=== PATIENT | female | born 1980 | race Caucasian/White ===

== ENCOUNTER → 2019-10-10 | Outpatient (CLI) | payer MEDICARE, OTHER | END | disposition home or self-care (01) | LOC: LABWHC1 12:43 | PROVIDERS: ATTEND Internal Medicine | DX: Z11.59 Encounter for screening for other viral diseases (principal) ==

== ENCOUNTER 2019-10-12 10:27 | Day surgery (SDC) | payer MEDICARE, OTHER ==
[2019-10-10 14:58] VITALS: BMI 38.9
[~2019-10-12 10:27] MED LIST: LACTATED RINGERS 1,000 ML IV SCH
[2019-10-12 11:16] VITALS: TEMP 96.6
[2019-10-12] MEDS ORDERED: PROPOFOL 10 MG/ML 20 ML VIAL IV ONE (11:47)
--- NOTE | 2019-10-12 12:03 | P.PCN ---
Date of Procedure: 10/12/19 Procedure(s) Performed: BRIEF HISTORY: Patient is a 38-year-old pleasant white female scheduled for an elective colonoscopy as a part of evaluation of intermittent rectal bleeding and change in bowel habits for the last few months duration PROCEDURE PERFORMED: Colonoscopy.With snare polypectomy PREOPERATIVE DIAGNOSIS: Change in bowel habits and intermittent rectal bleeding. IV sedation per Anesthesia. PROCEDURE: After informed consent was obtained, the patient, was brought into the endoscopy unit. IV sedation was administered by Anesthesia under continuous monitoring. Digital rectal examination was normal. Initially the Olympus CF-160 flexible video colonoscope was then inserted in the rectum, gradually advanced into the cecum without any difficulty. Careful examination was performed as the scope was gradually being withdrawn. Ileocecal valve and the appendiceal orifice were visualized and appeared normal. Prep was excellent. Mucosa of the cecum, ascending colon, transverse colon, descending colon, sigmoid colon, and rectum appeared normal. In the proximal rectum there is polyps measuring 5 mm and 7 mm in size both of which were removed by snare polypectomy. Retroflexion was performed in the rectum and small internal hemorrhoids were seen. The patient tolerated the procedure well. IMPRESSION: 5 mm and 7 mm proximal rectal polyps status post polypectomy Small internal hemorrhoids RECOMMENDATIONS: Findings of this examination were discussed with the patient. She was advised to follow with the biopsy results. If the biopsy shows an adenoma she can have a repeat colonoscopy in 5 years.She was advised to be a high-fiber diet and take a regular fiber supplements on a regular basis .
[2019-10-12 12:20] VITALS: BP 126/77; PULSE 77; RESP 18
== END 2019-10-12 12:44 | disposition home or self-care (01) ==
LOC: ORWHC2ENDO 10:27
PROVIDERS: ATTEND Internal Medicine Gastroenterology
DX: D12.8 Benign neoplasm of rectum (principal); K64.8 Other hemorrhoids; F17.210 Nicotine dependence, cigarettes, uncomplicated; F41.9 Anxiety disorder, unspecified; F32.9 Major depressive disorder, single episode, unspecified; M79.7 Fibromyalgia; Z88.0 Allergy status to penicillin; Z79.899 Other long term (current) drug therapy
CPT/HCPCS: 88305; 45385; J2704

== ENCOUNTER → 2021-11-04 | Outpatient (CLI) | payer MEDICARE, OTHER ==
[2021-11-04 14:50] VITALS: BP 157/102; PULSE 82; RESP 17; TEMP 98.2
--- NOTE | 2021-11-04 18:52 | P.HPOB ---
History of Present Illness H&P Date: 11/04/21 Chief Complaint: The patient is here for her routine gynecologic exam. This is a 48-year-old 023 with an LMP of 2016. The patient is here to establish with this office. It has been about 5 years since her last pelvic exam. She previously saw Dr. Nieto for her gynecologic care. She is status post ROCÍO for benign reasons in 2016. She frequently feels hot and wonders if this is related to menopausal changes. She was also recently started on Synthroid for hypothyroidism, but her hot sensations started about 2 years ago. Review of Systems The patient's weight has been stable over the last year. She states she did have a significant weight gain of about 80 pounds about 4 years ago and this seems to correspond when she stopped abusing prescription narcotic pain medications. She denies respiratory, cardiac, or G.I. problems. Past Medical History Past Medical History: Fibromyalgia, GERD/Reflux, Musculoskeletal Disorder, Thyroid Disorder Additional Past Medical History / Comment(s): ARTHRITIS. DDD, BACK PAIN; MIGRAINES. Fibromyalgia. Hypothyroidism. Fatty liver. EDEMA LEGS ON/OFF. 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 No other history of STDs. History of Any Multi-Drug Resistant Organisms: None Reported Past Surgical History: Cholecystectomy, Hysterectomy, Tubal Ligation, Uterine Ablation Additional Past Surgical History / Comment(s): D & C AFTER ECTOPIC ; Laparoscopy, right partial salpingectomy; TL X2. B/L lower back radiofrequency nerve ablation, ROCÍO with L salpingectomy 03/24/16. Colonoscopy with polyp removal 2019(next after 3yr). Past Anesthesia/Blood Transfusion Reactions: No Reported Reaction Past Psychological History: Anxiety, Depression (Well-controlled with medication.), Panic Disorder Smoking Status: Former smoker Past Alcohol Use History: Occasional (6 or 7 per month) Additional Past Alcohol Use History / Comment(s): SMOKES <1/2 PPD, X16 YEARS. Quit smoking May 2021. Past Drug Use History: Marijuana, Opiates Additional Drug Use History / Comment(s): MARIJUANA USE 20 YRS AGO, NONE NOW. History of opiate abuse up until 2018. Edible CBD products. - Past Family History Mother Family Medical History: Renal Disease Additional Family Medical History / Comment(s): Depression. Maternal grandmother had renal failure. Maternal great grandmother had breast cancer. Father Family Medical History: Unable to Obtain Medications and Allergies Home Medications Medication Instructions Recorded Confirmed Type Acetaminophen [Tylenol Extra 500 mg PO DIRECTED PRN 10/10/19 11/04/21 History Strength] FLUoxetine HCL [PROzac] 20 mg PO HS 10/10/19 11/04/21 History Multivitamins, Thera [Multivitamin 1 tab PO DAILY 10/10/19 11/04/21 History (formulary)] Cholecalciferol (Vitamin D3) 125 mcg PO DAILY 11/04/21 11/04/21 History [Vitamin D3 (125 MCG = 5,000 IU)] Allergies Allergy/AdvReac Type Severity Reaction Status Date / Time Penicillins Allergy Rash/Hives Verified 11/04/21 14:45 Exam Vital Signs Temp Pulse Resp BP Pulse Ox 11/04/21 14:47 98.2 F 82 17 157/102 97 Intake and Output 11/04/21 11/04/21 11/04/21 06:59 14:59 22:59 Other: Weight 107.955 kg Height 5 feet 4 inches, weight 238 pounds, BMI 40.9. Repeat blood pressure in the left arm was 148/92 using the large blood pressure cuff. This is a well-developed well-nourished heavyset white female who is alert and oriented times 3 in no acute distress. HEENT: Within normal limits. NECK: Supple without mass or thyromegaly. CHEST AND LUNGS: Clear to auscultation. HEART: Regular rate and rhythm. BREASTS: Are without mass or discharge. AXILLARY EXAM: Negative for adenopathy. BACK: Negative for CVA tenderness. ABDOMEN: Soft, nontender, without palpable masses. PELVIC EXAM: External genitalia appears normal. Vagina appears normal. There is no evidence of prolapse. Bimanual examination is negative for mass or tenderness. RECTAL EXAM: negative for mass or tenderness and is negative for occult blood. EXTREMITIES: Nontender. IMPRESSION: 1. 40-year-old female status post ROCÍO and bilateral salpingectomy for benign reasons, with normal gynecologic exam. 2. Vasomotor symptoms. Differential diagnosis will include perimenopausal changes as well as thyroid dysfunction and possible thyroid medication side effects. 3. Elevated blood pressure. PLAN: 1. Pap smears have been discontinued. 2. Self breast awareness was discussed with the patient. We have also discussed symptoms associated with inflammatory breast cancer. 3. Screening mammogram is due and the order slip was given to the patient for this. 4. Blood tests will include FSH and estradiol to determine if she is menopausal. The order slip was given to the patient for this. 5. We have discussed her elevated blood pressure. I have recommended that she check her own blood pressure on a regular basis and follow up with her PCP for blood pressure elevations. 6. Because of her history of fatty liver, I recommended that she avoid Tylenol intake. We have discussed other [id number] pain medications. 7. She has not had a Covid vaccination. She states she has had Covid in the past. She understands the CDC recommends Covid vaccination. She will consider this. 8. She was advised to return in one year for her annual well woman exam and as needed.
[2021-11-05 00:23] LABS: Estradiol 41.3 pg/mL; Follicle Stimulating Hormone 3.7 mIU/mL
--- NOTE | 2021-11-05 11:44 | P.PN ---
Progress Note - Text Progress Note Date: 11/05/21 OUTPATIENT FOLLOW-UP NOTE TEST(S)/RESULTS: Test results from 11/04/2021 include FSH of 3.7 and estradiol of 41.3. METHOD OF NOTIFICATION: The patient was notified by phone. PATIENT COMMENTS: DIAGNOSIS: Blood tests are consistent with perimenopausal status DISCUSSION: Her feeling warm and sweats most likely not related to the menopausal change based on these blood tests. I have recommended that she discuss this with her PCP and to make sure her thyroid hormone levels are monitored since she was recently started on Synthroid. I have also recommended that she try to look for triggers of the vasomotor symptoms that she describes. PLAN: She was advised to return in one year for her annual well woman exam and as needed.
== END | disposition home or self-care (01) ==
LOC: WWCWWP 14:25
PROVIDERS: ATTEND Obstetrics & Gynecology
DX: N92.4 Excessive bleeding in the premenopausal period (principal)
CPT/HCPCS: 36415; 82670; 83001

== ENCOUNTER → 2021-11-18 | Outpatient (CLI) | payer MEDICARE, OTHER ==
--- NOTE | 2021-11-19 07:59 | MM ---
Reason for Exam: Screening (asymptomatic). Last mammogram was performed 5 year(s) and 11 month(s) ago. Patient History: Menarche at age 11. First Full-Term at age 15. Maternal grandmother had breast cancer, age 65. Risk Values: Génesis 5 year model risk: 0.5%. NCI Lifetime model risk: 8.0%. Prior Study Comparison: 12/09/2015 Bilateral Screening Mammogram, [facility]. Tissue Density: The breast tissue is heterogeneously dense. This may lower the sensitivity of mammography. Findings: Analyzed By CAD. There is no suspicious group of microcalcifications or new suspicious mass in either breast. Overall Assessment: Negative, BI-RAD 1 Management: Screening Mammogram of both breasts in 1 year. A clinical breast exam by your physician is recommended on an annual basis and results should be correlated with mammographic findings. Electronically signed and approved by: Desmond Puga M.D. Radiologis
== END | disposition home or self-care (01) ==
LOC: RADMAMWWP 16:25
PROVIDERS: ATTEND Obstetrics & Gynecology
DX: Z12.31 Encounter for screening mammogram for malignant neoplasm of breast (principal)
CPT/HCPCS: 77063; 77067

== ENCOUNTER → 2023-01-19 | Outpatient (CLI) | payer MEDICARE, OTHER ==
[2023-01-19 11:44] VITALS: BP 109/71; PULSE 83; RESP 16; TEMP 97.9
--- NOTE | 2023-01-19 12:41 | P.HPOB ---
History of Present Illness H&P Date: 01/19/23 Chief Complaint: The patient is here for her routine gynecologic exam and ma mmogram. This is a 42-year-old 023 with an LMP of 2016. The patient is complaining of worsening hot flashes and night sweats and this is very bothersome for her. She is status post ROCÍO for benign reasons. Last year she had an estradiol level of 41 on 11/04/2021. She states she has noticed a small irregularity of the left labia minora since childbirth more than 20 years ago. She is wondering what it is. She is otherwise without gynecologic complaints. Review of Systems She has lost about 40 pounds over the past year and she has done this intentionally with diet and exercise. She denies respiratory or cardiac problems. GI: Occasional irritable bowel symptoms and she is seeing a GI specialist for this. Past Medical History Past Medical History: Fibromyalgia, GERD/Reflux, Musculoskeletal Disorder, Thyroid Disorder Additional Past Medical History / Comment(s): ARTHRITIS. DDD, BACK PAIN; MIGRAINES. Fibromyalgia. Hypothyroidism. Fatty liver. EDEMA LEGS ON/OFF. 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 No other history of STDs. History of Any Multi-Drug Resistant Organisms: None Reported Past Surgical History: Cholecystectomy, Hysterectomy, Tubal Ligation, Uterine Ablation Additional Past Surgical History / Comment(s): D & C AFTER ECTOPIC ; Laparoscopy, right partial salpingectomy; TL X2. B/L lower back radiofrequency nerve ablation, ROCÍO with L salpingectomy 03/24/16. Colonoscopy with polyp removal 2019(next after 3yr). Past Anesthesia/Blood Transfusion Reactions: No Reported Reaction Past Psychological History: Anxiety, Depression, Panic Disorder Smoking Status: Former smoker Past Alcohol Use History: Occasional (0-4 per month.) Additional Past Alcohol Use History / Comment(s): SMOKES <1/2 PPD, X16 YEARS. Quit smoking May 2021. Past Drug Use History: Marijuana, Opiates Additional Drug Use History / Comment(s): MARIJUANA USE 20 YRS AGO, NONE NOW. History of opiate abuse up until 2018. Edible CBD products. Additional History: She is currently undergoing a divorce and has been with a new boyfriend since summer. They do not live together. - Past Family History Father Family Medical History: Unable to Obtain Mother Family Medical History: Dementia, Renal Disease Additional Family Medical History / Comment(s): Depression and Alzheimer's disease.. Maternal grandmother had renal failure. Maternal great grandmother had breast cancer. Medications and Allergies Home Medications Medication Instructions Recorded Confirmed Type Acetaminophen [Tylenol Extra 500 mg PO DIRECTED PRN 10/10/19 01/19/23 History Strength] FLUoxetine HCL [PROzac] 20 mg PO HS 10/10/19 01/19/23 History Multivitamins, Thera [Multivitamin 1 tab PO DAILY 10/10/19 01/19/23 History (formulary)] Cholecalciferol (Vitamin D3) 125 mcg PO DAILY 11/04/21 01/19/23 History [Vitamin D3 (125 MCG = 5,000 IU)] L.acidoph,Paracasei, B.lactis 1 cap PO DAILY 01/19/23 01/19/23 History [Probiotic] Levothyroxine Sodium [Synthroid] 75 mcg PO DAILY 01/19/23 01/19/23 History Losartan [Cozaar] 25 mg PO DAILY 01/19/23 01/19/23 History Naproxen 250 mg PO DAILY 01/19/23 01/19/23 History Allergies Allergy/AdvReac Type Severity Reaction Status Date / Time Penicillins Allergy Rash/Hives Verified 01/19/23 11:38 Exam Vital Signs Temp Pulse Resp BP Pulse Ox 01/19/23 11:40 97.9 F 83 16 109/71 96 Intake and Output 01/18/23 01/19/23 01/19/23 22:59 06:59 14:59 Other: Weight 89.811 kg Height 5 feet 3 inches, weight 198 pounds, BMI 35.1. This is a well-developed well-nourished white female who is alert and oriented times 3 in no acute distress. HEENT: Within normal limits. NECK: Supple without mass or thyromegaly. CHEST AND LUNGS: Clear to auscultation. HEART: Regular rate and rhythm. BREASTS: Are without mass or discharge. AXILLARY EXAM: Negative for adenopathy. BACK: Negative for CVA tenderness. ABDOMEN: Soft, nontender, without palpable masses. PELVIC EXAM: External genitalia reveals a slight irregularity in the left labia minora where the anterior labia minora is slightly from the lower labia minora. This is most consistent with a previous left labial laceration at childbirth and appears completely benign. Vagina appears normal. There is no evidence of prolapse. Bimanual examination is negative for mass or tenderness. RECTAL EXAM: Rectovaginal exam is negative for mass or tenderness and is negative for occult blood. EXTREMITIES: Nontender. IMPRESSION: 1. 42-year-old female status post ROCÍO for benign reasons, with moderate to severe vasomotor symptoms consistent with the menopausal change. 2. Benign-appearing left labia minora consistent with a labial laceration from childbirth that has healed. PLAN: 1. Pap smears have been discontinued. 2. Self breast awareness was discussed with the patient. We have also discussed symptoms associated with inflammatory breast cancer. 3. Screening mammogram will be done today. 4. I have reassured the patient regarding the labial separation. Since this causes her no problems nothing further as needed. She states it has not changed for more than 20 years. 5. Trial of ERT was discussed. We have discussed possible risks including the possible increased risk for stroke and blood clots. She has no history of rest or uterine cancer. She will be started on estradiol 0.5 mg daily by mouth. The electronic prescription will be sent to [facility] pharmacy. She will return in 1-2 months for recheck. 6. She is scheduled for a colonoscopy through her GI specialist later this week. 7. We will see her for recheck in 1-2 months and in one year and as needed.
== END ==
LOC: WWCWWP 11:24
PROVIDERS: ATTEND Obstetrics & Gynecology
DX: Z01.419 Encounter for gynecological examination (general) (routine) without abnormal findings (principal); E03.9 Hypothyroidism, unspecified; K21.9 Gastro-esophageal reflux disease without esophagitis; K76.0 Fatty (change of) liver, not elsewhere classified; F17.210 Nicotine dependence, cigarettes, uncomplicated; M19.90 Unspecified osteoarthritis, unspecified site; Z78.0 Asymptomatic menopausal state; Z79.890 Hormone replacement therapy; Z79.899 Other long term (current) drug therapy; Z80.3 Family history of malignant neoplasm of breast; Z88.0 Allergy status to penicillin

== ENCOUNTER → 2023-01-19 | Outpatient (CLI) | payer MEDICARE, OTHER ==
--- NOTE | 2023-01-20 15:47 | MM ---
Reason for Exam: Screening (asymptomatic). Last mammogram was performed 1 year(s) and 2 month(s) ago. Patient History: Menarche at age 11. First Full-Term at age 15. Hysterectomy at age 35. Perimenopausal. Patient has history of breast feeding. Maternal grandmother had breast cancer, age 65. Risk Values: Génesis 5 year model risk: 0.5%. NCI Lifetime model risk: 7.9%. Prior Study Comparison: 12/09/2015 Bilateral Screening Mammogram, [facility]. 11/18/2021 Bilateral MG 3D screening mammo w/cad, [facility]. Tissue Density: The breast tissue is heterogeneously dense. This may lower the sensitivity of mammography. Findings: Analyzed By CAD. Pattern appears symmetrical and stable. No significant change is evident. There is a group of 4 calcifications within the mid right breast. Additional scattered punctate calcifications are present. No significant interval changes are evident. No suspicious groups of microcalcifications, spiculated or lobular masses, architectural distortion or other secondary signs of malignancy are mammographically apparent. Overall Assessment: Benign, BI-RAD 2 Management: Screening Mammogram of both breasts in 1 year. A negative mammogram report should not preclude additional follow up of suspicious palpable abnormalities. Patient should continue monthly self breast exam. A clinical breast exam by your physician is recommended on an annual basis and results should be correlated with mammographic findings. Electronically signed and approved by: Mitch Goddard D.O. Radiologis
== END | disposition home or self-care (01) ==
LOC: RADMAMWWP 11:22
PROVIDERS: ATTEND Family Medicine
DX: Z12.31 Encounter for screening mammogram for malignant neoplasm of breast (principal); Z80.3 Family history of malignant neoplasm of breast
CPT/HCPCS: 77063; 77067

== ENCOUNTER 2023-01-22 08:52 | Day surgery (SDC) | payer MEDICARE, OTHER ==
[2023-01-22] MEDS: LACTATED RINGERS 1,000 ML IV SCH ×2 (06:49→09:52)
[2023-01-22] MEDS ORDERED: LIDOCAINE 1% (10MG/ML) FOR IV START INTRADERMA PRN (09:35)
[2023-01-22 09:47] VITALS: RESP 16; TEMP 97.9
[2023-01-22] MEDS ORDERED: PROPOFOL 10 MG/ML 20 ML VIAL IV ONE (09:58)
--- NOTE | 2023-01-22 10:16 | P.PCN ---
Date of Procedure: 01/22/23 Procedure(s) Performed: BRIEF HISTORY: Patient is a 42-year-old pleasant white female scheduled for an elective colonoscopy as a part of evaluation of prior history of colon polyps. Her last colonoscopy was 3 years ago and was noted to have a tubular adenoma PROCEDURE PERFORMED: Colonoscopy. PREOPERATIVE DIAGNOSIS: History of colon polyps. IV sedation per Anesthesia. PROCEDURE: After informed consent was obtained, the patient, was brought into the endoscopy unit. IV sedation was administered by Anesthesia under continuous monitoring. Digital rectal examination was normal. Initially the Olympus CF-160 flexible video colonoscope was then inserted in the rectum, gradually advanced into the cecum without any difficulty. Careful examination was performed as the scope was gradually being withdrawn. Ileocecal valve and the appendiceal orifice were visualized and appeared normal. Prep was excellent. Mucosa of the cecum, ascending colon, transverse colon, descending colon, sigmoid colon, and rectum appeared normal. Retroflexion was performed in the rectum and no lesions were seen. The patient tolerated the procedure well. IMPRESSION: Normal-appearing colon from rectum to cecum with no evidence of colorectal neoplasia. RECOMMENDATIONS: Findings of this examination were discussed with the patient as well as a family. She was advised to have a repeat colonoscopy in 10 years.
[2023-01-22 15:26] VITALS: BP 102/68; PULSE 76
== END 2023-01-22 10:52 | disposition home or self-care (01) ==
LOC: ORWHC2ENDO 08:52
PROVIDERS: ATTEND Internal Medicine Gastroenterology
DX: Z12.11 Encounter for screening for malignant neoplasm of colon (principal); I10 Essential (primary) hypertension; E07.9 Disorder of thyroid, unspecified; F32.A Depression, unspecified; F41.9 Anxiety disorder, unspecified; G43.909 Migraine, unspecified, not intractable, without status migrainosus; K21.9 Gastro-esophageal reflux disease without esophagitis; Z79.890 Hormone replacement therapy; Z79.891 Long term (current) use of opiate analgesic; Z79.899 Other long term (current) drug therapy; Z88.0 Allergy status to penicillin; Z86.010 Personal history of colon polyps; Z98.890 Other specified postprocedural states
CPT/HCPCS: J2704; G0105

== ENCOUNTER → 2023-07-28 | Outpatient (CLI) | payer MEDICARE, OTHER ==
[2023-07-28 10:22] VITALS: BP 131/90; PULSE 91; RESP 17; TEMP 98
--- NOTE | 2023-07-28 10:38 | P.PN ---
Progress Note - Text Progress Note Date: 07/28/23 Chief Complaint: The patient is here for a recheck on estrogen replacement therapy for menopausal symptoms. HPI: This is a 42-year-old 0-3 with an LMP of 2016. She is status post ROCÍO for benign reasons. She was started on ERT in January 2023 because of severe hot flashes and night sweats which have been very bothersome. She was started on estradiol 0.5 mg daily. She states there has been slight improvement, but states she still has moderate hot flashes about 5 times per day and also experiences them at night as well. These are still bothersome. She denies any side effects including breast tenderness, headache, and nausea. She also denies shortness of breath, chest pain or leg pains. ROS: See HPI. PE: Blood pressure: 131/90, Height: 5 feet 4 inches, Weight: 227 pounds, Temperature: 98.0, Pulse: 91. Pulse oximeter 98%. This is a well developed, well nourished, white female who is alert and orientedx3, in no acute distress. Impression: 1. 42-year-old perimenopausal female status post ROCÍO for benign reasons, vasomotor symptoms slightly improved with estradiol 0.5 mg daily. 2. She continues to have moderate vasomotor symptoms during the day and night. Plan: 1. We will increase the estradiol to 1 mg daily. We have again reviewed possible side effects and possible risks. We have discussed the increased risk for blood clots with ERT. She understands these risks and would like to proceed with the increased dose of estradiol. The electronic prescription will be sent to [facility] in [place]. 2. She will return in January of this year for her annual examination or she was instructed to return after 2 months if vasomotor symptoms are still very bothersome. Time spent with the patient: 15 minutes
== END ==
LOC: WWCWWP 10:00
PROVIDERS: ATTEND Obstetrics & Gynecology
DX: F12.90 Cannabis use, unspecified, uncomplicated (principal); F17.200 Nicotine dependence, unspecified, uncomplicated; Z78.0 Asymptomatic menopausal state; Z90.710 Acquired absence of both cervix and uterus; Z88.0 Allergy status to penicillin

== ENCOUNTER → 2024-08-22 | Outpatient (CLI) | payer MEDICARE, OTHER ==
[2024-08-22 14:43] VITALS: BP 129/88; PULSE 89; RESP 16; TEMP 97.8
--- NOTE | 2024-08-22 15:16 | P.HPOB ---
History of Present Illness H&P Date: 08/22/24 Chief Complaint: The patient is here for her routine gynecologic exam and ma mmogram. This is a 43-year-old -0-2-3 with an LMP of 2016. The patient is status post ROCÍO for benign reasons. She is on ERT for menopausal symptoms. She states with the increase in ERT last year, she has noticed less hot flashes, but is experiencing a low sex drive. She denies dyspareunia. She is in relatively new relationship in the past 2 years. She states she is able to achieve orgasm without difficulty. She is otherwise without gynecologic complaints. Review of Systems The patient has gained 44 pounds over the last year. This was after losing 40 pounds with diet and exercise. She denies respiratory, cardiac, or G.I. problems. Past Medical History Past Medical History: Fibromyalgia, GERD/Reflux, Musculoskeletal Disorder, Thyroid Disorder Additional Past Medical History / Comment(s): ARTHRITIS. DDD, BACK PAIN; MIGRAINES(improvent with Botox inj. Fibromyalgia. Hypothyroidism. Fatty liver. EDEMA LEGS ON/OFF. 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 No other history of STDs. History of Any Multi-Drug Resistant Organisms: None Reported Past Surgical History: Cholecystectomy, Hysterectomy, Tubal Ligation, Uterine Ablation Additional Past Surgical History / Comment(s): D & C AFTER ECTOPIC ; Laparoscopy, right partial salpingectomy; TL X2. B/L lower back radiofrequency nerve ablation, ROCÍO with L salpingectomy 03/24/16. Colonoscopy with polyp removal 2019(next after 3yr). Past Anesthesia/Blood Transfusion Reactions: No Reported Reaction Past Psychological History: Anxiety, Depression, Panic Disorder Smoking Status: Former smoker Past Alcohol Use History: Occasional (5-6 drinks every 3 months.) Additional Past Alcohol Use History / Comment(s): SMOKES <1/2 PPD, X16 YEARS. Quit smoking May 2021. Past Drug Use History: Marijuana, Opiates Additional Drug Use History / Comment(s): MARIJUANA USE 20 YRS AGO, NONE NOW. History of opiate abuse up until 2018. Edible CBD products. Additional History: She is . She has been with her boyfriend since 2022. They do not live together. She does not work outside of the home. - Past Family History Father Family Medical History: Unable to Obtain Mother Additional Family Medical History / Comment(s): Depression. Maternal grandmother had renal failure. Maternal great grandmother had breast cancer. alzheimer Medications and Allergies Home Medications Medication Instructions Recorded Confirmed Type Acetaminophen [Tylenol Extra 500 mg PO DIRECTED PRN 10/10/19 08/22/24 History Strength] FLUoxetine HCL [PROzac] 20 mg PO HS 10/10/19 08/22/24 History Multivitamins, Thera [Multivitamin 1 tab PO DAILY 10/10/19 08/22/24 History (formulary)] Cholecalciferol (Vitamin D3) 125 mcg PO DAILY 11/04/21 08/22/24 History [Vitamin D3 (125 MCG = 5,000 IU)] Levothyroxine Sodium [Synthroid] 75 mcg PO DAILY 01/19/23 08/22/24 History Losartan [Cozaar] 25 mg PO DAILY 01/19/23 08/22/24 History Naproxen 250 mg PO BID 01/19/23 08/22/24 History Omeprazole 20 mg PO HS 01/21/23 08/22/24 History Unk 1 tab PO DAILY 01/21/23 08/22/24 History estradioL [Estrace] 1 mg PO DAILY #90 tab 07/28/23 08/22/24 Rx Cetirizine HCl 10 mg PO BID 08/22/24 08/22/24 History Pregabalin [Lyrica] 75 mg PO BID 08/22/24 08/22/24 History amLODIPine [Norvasc] 5 mg PO DAILY 08/22/24 08/22/24 History hydroCHLOROthiazide 25 mg PO DAILY 08/22/24 08/22/24 History Allergies Allergy/AdvReac Type Severity Reaction Status Date / Time Penicillins Allergy Rash/Hives Verified 08/22/24 14:27 Exam Vital Signs Temp Pulse Resp BP Pulse Ox 08/22/24 14:34 97.8 F 89 16 129/88 98 Intake and Output 08/22/24 08/22/24 08/22/24 06:59 14:59 22:59 Other: Weight 242 kg Height 5 feet 5 inches, weight 242 pounds, BMI 40. This is a well-developed well-nourished heavyset white female who is alert and oriented times 3 in no acute distress. HEENT: Within normal limits. NECK: Supple without mass or thyromegaly. CHEST AND LUNGS: Clear to auscultation. HEART: Regular rate and rhythm. BREASTS: Are without mass or discharge. AXILLARY EXAM: Negative for adenopathy. BACK: Negative for CVA tenderness. ABDOMEN: Soft, nontender, without palpable masses. PELVIC EXAM: External genitalia appears normal. Vagina appears normal. There is no evidence of prolapse. Bimanual examination reveals a palpable mass posterior to the vaginal cuff which measures approximately 3 to 4 cm. This is nontender and initially felt like it could represent stool. RECTAL EXAM: Rectovaginal exam is negative for rectal mass or tenderness and is negative for occult blood. The palpable mass on the above bimanual examination was not explained by rectal stool. EXTREMITIES: Nontender. IMPRESSION: 1. 43-year-old menopausal female status post ROCÍO for benign reasons, with normal gynecologic exam. 2. Improvement with vasomotor symptoms on ERT. 3. Hypoactive sexual desire disorder without anorgasmia. 4. Palpable pelvic mass on exam today. Differential diagnosis will include colonic stool, palpable ovary, and ovarian mass. PLAN: 1. Pap smears have been discontinued. 2. Self breast awareness was discussed with the patient. We have also discussed symptoms associated with inflammatory breast cancer. 3. Screening mammogram will be done today. 4. Pelvic ultrasound was recommended. I have recommended that she move her bowels and possibly use Senokot as directed, if needed. The order slip for the pelvic ultrasound was given to the patient. 5. We have had a long discussion regarding decreased sex drive. We discussed options including increasing the estrogen amount that she takes and testosterone therapy. We have also discussed how there are many factors that can contribute to decreased libido. I have stressed the importance of good nutrition, adequate rest, limited alcohol intake and regular exercise. She should also make sure her thyroid is well-regulated. After the long discussion she is declining changing her ERT at this time. Electronic prescription for estradiol 1 mg p.o. daily will be sent to [facility] pharmacy in [place]. 6. Osteoporosis prevention was discussed. I have stressed the importance of adequate calcium, vitamin D and regular exercise. Recommended amounts of calcium and vitamin D were also discussed. 7. She was advised to return in one year for her annual well woman exam and as needed.
--- NOTE | 2024-08-22 15:35 | MM ---
Reason for Exam: Screening (asymptomatic). Last mammogram was performed 1 year(s) and 7 month(s) ago. Patient History: Menarche at age 11. First Full-Term at age 15. Hysterectomy at age 35. Perimenopausal. Patient has history of breast feeding. Maternal grandmother had breast cancer, age 65. Risk Values: Génesis 5 year model risk: 0.6%. NCI Lifetime model risk: 7.8%. Prior Study Comparison: 12/09/2015 Bilateral Screening Mammogram, [facility]. 11/18/2021 Bilateral MG 3D screening mammo w/cad, [facility]. 01/19/2023 Bilateral MG 3D screening mammo w/cad, [facility]. Tissue Density: The breasts are heterogeneously dense, which may obscure small masses. Findings: Analyzed By CAD. A few tiny benign-appearing calcifications bilaterally are redemonstrated. There is no suspicious new group of microcalcifications or new suspicious mass in either breast. Overall Assessment: Benign, BI-RAD 2 Management: Screening Mammogram of both breasts in 1 year. . Patient should continue monthly self-breast exams. A clinical breast exam by your physician is recommended on an annual basis. This exam should not preclude additional follow-up of suspicious palpable abnormalities. Note on Génesis scores and lifetime risk: 1. A Génesis score greater than 3% is considered moderate risk. If this is the case, consider specialist referral to assess eligibility for a risk reducing agent. 2. If overall lifetime risk for the development of breast cancer is 20% or higher, the patient may qualify for future screening with alternating mammogram and breast MRI. [facility], , 08/22/2024 3:31 PM. Electronically signed and approved by: Toni Lopez M.D.
== END ==
LOC: WWCWWP 13:55
PROVIDERS: ATTEND Obstetrics & Gynecology
DX: Z01.419 Encounter for gynecological examination (general) (routine) without abnormal findings (principal); Z12.31 Encounter for screening mammogram for malignant neoplasm of breast; N95.1 Menopausal and female climacteric states; F52.0 Hypoactive sexual desire disorder; F17.200 Nicotine dependence, unspecified, uncomplicated; Z90.710 Acquired absence of both cervix and uterus; Z88.0 Allergy status to penicillin
CPT/HCPCS: 77063; 77067

== ENCOUNTER → 2024-10-17 | Outpatient (CLI) | payer MEDICARE, OTHER ==
--- NOTE | 2024-10-17 14:55 | US ---
EXAMINATION TYPE: US pelvic complete DATE OF EXAM: 10/17/2024 COMPARISON: US 2016 CLINICAL INDICATION: Female, 43 years old with history of R19.09 PELVIC MASS SWELLING LUMP; Mass and lump per order. Hx surgery for ectopic, ablation, uterus removed, pt thinks she has both ovaries. . TECHNIQUE: Transvaginal (TV) and Transabdominal (TA) . Transabdominal grayscale sonographic images of the pelvis were acquired. Transvaginal sonographic im ages were medically necessary to better assess the following anatomy: Doppler imaging: Not performed. FINDINGS: Date of LMP: Unknown, hx partial hysterectomy EXAM MEASUREMENTS: Uterus: Surgically absent Endometrial Stripe: Surgically absent Right Ovary: Not visualized Left Ovary: Not visualized 1. Uterus: Surgically absent 2. Endometrium: Surgically absent 3. Right Ovary: Not visualized 4. Left Ovary: Not visualized 5. Bilateral Adnexa: Questionable hyperechoic area with shadowing left adnexa, no peristalsis see n within during exam, question mass versus bowel/gas measures: 7.5 x 9.3 x 7.7 cm transvaginally. 6. Posterior cul-de-sac: Appears wnl IMPRESSION: 1. Potential masslike area within the left adnexa. Recommend CT abdomen and pelvis for additional wor kup O-RADS 2021 [email or web address] [facility], Workstation: [id number], 10/17/2024 2:52 PM
--- NOTE | 2024-10-18 09:41 | P.PN ---
Progress Note - Text Progress Note Date: 10/18/24 OUTPATIENT FOLLOW-UP NOTE TEST(S)/RESULTS: Pelvic ultrasound done on 10/17/2024 shows a potential masslike area in the left adnexal region. There is a hyperechoic area with shadowing which could represent a possible mass versus bowel or gas measuring 7.5 x 9.3 x 7.7 cm. METHOD OF NOTIFICATION: Findings were discussed with the patient by phone on 10/18/2024. PATIENT COMMENTS: DIAGNOSIS: Palpable pelvic mass with ultrasound findings that could represent a potential masslike area, but could also represent bowel, stool, or gas. DISCUSSION: I reviewed the ultrasound images with Dr. Lopez, the radiologist. He states it is difficult to know if there is an actual mass or if this is shadowing from stool or gas. Get a CT scan of the abdomen and pelvis with contrast to try to further determine the nature of the findings. PLAN: As above.
== END | disposition home or self-care (01) ==
LOC: RADUSWWP 14:14
PROVIDERS: ATTEND Obstetrics & Gynecology
DX: R19.09 Other intra-abdominal and pelvic swelling, mass and lump (principal); Z90.710 Acquired absence of both cervix and uterus
CPT/HCPCS: 76830; 76856

== ENCOUNTER → 2024-11-03 | Outpatient (CLI) | payer MEDICARE, OTHER ==
--- NOTE | 2024-11-03 15:09 | CT ---
EXAMINATION TYPE: CT abdomen pelvis w con CT DLP: 2392 mGycm, Automated exposure control for dose reduction was used. DATE OF EXAM: 11/03/2024 3:01 PM COMPARISON: Pelvic ultrasound 10/17/2024, 02/04/2016, 12/09/2015 CLINICAL INDICATION:Female, 43 years old with history of R19.09 pelvic mass; pelvic mass TECHNIQUE: Standard CT of the abdomen and pelvis following the administration of 100 cc of Isovue 3 00 IV contrast material and oral contrast. Coronal and sagittal reformats were performed. FINDINGS: LOWER CHEST: Left lower lobe lung base solid 4.7 millimeter pulmonary nodule (series 6, image 10). Th e lung bases are otherwise clear. ABDOMEN LIVER: [place] tail morphology. No focal lesion. GALLBLADDER AND BILE DUCTS: Unremarkable. PANCREAS: Unremarkable. SPLEEN: Unremarkable. ADRENAL GLANDS: Unremarkable. KIDNEYS AND URETERS: No evidence of hydronephrosis or renal calculus. The kidneys enhance symmetrical ly. Contrast is demonstrated within both collecting systems and ureters on the delayed phase. PELVIS BLADDER: Unremarkable REPRODUCTIVE: The uterus is surgically absent. No evidence for pelvic mass. Both ovaries are visualiz ed and appear unremarkable. ABDOMEN & PELVIS STOMACH AND BOWEL: Stomach and duodenum are unremarkable. Enteric contrast reaches the mid small julieta l. No focal bowel wall thickening or surrounding inflammatory changes. The appendix is within normal limits. No evidence of bowel obstruction. PERITONEUM: No evidence of pneumoperitoneum or free fluid. VASCULATURE: No evidence of aortic aneurysm. Multiple pelvic phleboliths. MUSCULOSKELETAL: No acute osseous abnormalities LYMPH NODES: No evidence for lymphadenopathy. SOFT TISSUE/ABDOMINAL WALL: Unremarkable IMPRESSION: 1. No CT evidence for acute abdominal/pelvic process. No evidence for pelvic mass corresponding to p rior ultrasound. 2. Left lower lobe 4.7 mm pulmonary nodule. According to Fleischner criteria in a low risk patient no follow-up is recommended. In a high-risk patient consider optional CT chest in 12 months. [facility], , 11/03/2024 3:07 PM
== END | disposition home or self-care (01) ==
LOC: RADCTMAIN 13:10
PROVIDERS: ATTEND Obstetrics & Gynecology
DX: R19.09 Other intra-abdominal and pelvic swelling, mass and lump (principal); R91.1 Solitary pulmonary nodule
CPT/HCPCS: 74177; Q9967